=== PATIENT | female | born 1975 | race Caucasian/White ===

== ENCOUNTER 2020-01-17 09:41 | Emergency (ER) | payer MEDICAID, SELFPAY ==
[2020-01-17 09:46] VITALS: BP 132/93; PULSE 93; RESP 18; TEMP 37.2; O2SAT 94
--- NOTE | 2020-01-17 10:01 | W.ED.GENAD ---
Discharge Plan Disposition Patient Disposition: HOME Condition: Improving Discharge Details Chief Complaint: ETOHWithdr Clinical Impression: Alcohol dependence Primary Care Provider: Gracie Kay ED Provider: Serafin Zafar Home Meds and New Rx's Prescriptions: New chlordiazepoxide HCl 25 mg capsule 25 mg PO Q8H PRNQty: 2 RF: 0 Continued valacyclovir 500 mg Tablet 500 mg PO BID PRNRF: 0 acetaminophen 500 mg Tablet 500 mg PO Q6H PRNRF: 0 hydrochlorothiazide 25 mg Tablet 25 mg PO DAILY RF: 0 methadone [Methadone Intensol] 10 mg/mL Concentrate 65 mg PO DAILY RF: 0 ibuprofen 600 mg Tablet 600 mg PO Q8H PRNRF: 0 norethindrone (contraceptive) 0.35 mg Tablet 0.35 mg PO DAILY RF: 0 lisinopril 40 mg Tablet 40 mg PO DAILY RF: 0 Multi-Vitamin HP/Minerals Capsule 1 cap PO DAILY RF: 0 melatonin 5 mg Tablet,Disintegrating 5 mg PO DAILY PRNRF: 0 Discharge Instructions Additional Instructions: Care management, Daysi Bullock, will follow-up with you tomorrow and plan on following up with referral to [place] who have requested that your walsh virus test be completed. NicoDerm patch should be removed after 24 hours. You may not use alcohol while taking Librium. You were given an initial dose today and 2 more doses have been prescribed. Use of methadone is not recommended with this medication due to oversedation. Return to the emergency department for any acute concerns in the interim. Medical Decision Making 44-year-old female alcoholic states she is been admitted previously to [facility], other institutions for detox. She states has been homeless for the past 3 to 4 months and recently relocated from the [facility] to the [facility] in [place]. She is quite anxious, is not a threat to harm herself or others, but is seeking inpatient detoxification. Blood pressure 132/93, pulse 70s during exam. The patient underwent screening medical examination and laboratories performed. Diagnostics noted unremarkable CBC with MCV of 90. Sodium is low at 129 and likely due to beer Potomania. Alcohol level elevated at 283. The patient received a banana bag. She was interviewed by the on-call cross country coach and given references for referral. They also recommended the patient speak with care management and the patient was visited by Daysi Bullock in the ED. a plan was made for referral to [facility], with prescreening of COVID-19 to be performed today. Care management will follow up with the patient tomorrow for probable transfer to [place]. I will treat her with a dose of Librium today, followed by prescription for 2 more pills to maintain her until probable admission to [facility]. She understands she is not to use alcohol with this medication. Patient improved with fluids, banana bag, nicotine patch. She is stable and improved. She is appropriate for plan of outpatient follow-up tomorrow with care management. Lab Data Lab results reviewed: Yes I reviewed the patient's lab results. Labs: Laboratory Results - last 24 hr 01/17/20 01/17/20 01/17/20 10:35 10:35 10:35 WBC 6.85 RBC 4.60 Hgb 14.7 Hct 41.8 MCV 90.9 MCH 32.0 MCHC 35.2 RDW 15.2 H Plt Count 317 MPV 8.5 Immature Gran % 0.1 Neutrophils % 46.5 Lymphocytes % 34.7 Monocytes % 17.2 Eosinophils % 0.9 Basophils % 0.6 Absolute Neutrophils 3.18 Absolute Lymphocytes 2.38 Absolute Monocytes 1.18 H Absolute Eosinophils 0.06 Absolute Basophils 0.04 Sodium 129 L Potassium 4.3 Chloride 94 L Carbon Dioxide 26.3 Anion Gap 8.7 BUN 8 Creatinine 0.71 Estimated GFR/1.73 m2 >= 60.00 Glucose 97 Calcium 8.5 Magnesium 2.1 Total Bilirubin 0.4 AST 29 ALT 36 Alkaline Phosphatase 66 Total Protein 8.4 H Albumin 4.5 Urine Color Urine Clarity Urine pH Ur Specific [place] Urine Protein Urine Ketones Urine Blood Urine Nitrite Urine Bilirubin Urine Urobilinogen Ur Leukocyte Esterase Urine Glucose Salicylates 7.0 Urine Opiates Screen Urine Methadone Screen Acetaminophen < 2 Ur Barbiturates Screen Ur Tricyclics Screen Ur Amphetamines Screen U Benzodiazepines Scrn Urine Cocaine Screen Ur THC Screen Ethyl Alcohol 283.8 01/17/20 01/17/20 10:38 10:38 WBC RBC Hgb Hct MCV MCH MCHC RDW Plt Count MPV Immature Gran % Neutrophils % Lymphocytes % Monocytes % Eosinophils % Basophils % Absolute Neutrophils Absolute Lymphocytes Absolute Monocytes Absolute Eosinophils Absolute Basophils Sodium Potassium Chloride Carbon Dioxide Anion Gap BUN Creatinine Estimated GFR/1.73 m2 Glucose Calcium Magnesium Total Bilirubin AST ALT Alkaline Phosphatase Total Protein Albumin Urine Color Yellow Urine Clarity Clear Urine pH 6.0 Ur Specific [place] 1.010 Urine Protein Negative Urine Ketones Negative Urine Blood Negative Urine Nitrite Negative Urine Bilirubin Negative Urine Urobilinogen 0.2 Ur Leukocyte Esterase Negative Urine Glucose Negative Salicylates Urine Opiates Screen Negative Urine Methadone Screen Positive A Acetaminophen Ur Barbiturates Screen Negative Ur Tricyclics Screen Negative Ur Amphetamines Screen Negative U Benzodiazepines Scrn Negative Urine Cocaine Screen Negative Ur THC Screen Positive A Ethyl Alcohol HPI General Mode of arrival: ambulatory. Date/Time Provider Initiated Documentation: 01/17/20 09:43. Limitations to Documentation: no limitations. Information obtained by: patient. History of Present Illness 44 year old F presents to the emergency department with the chief complaint of Requesting alcohol detox, drinking > 120 ounces of beer/day. Hx of same, described as moderate, Quality is described as dull, Patient started experiencing this month(s) and it has been constant. No relieving factors improve symptom(s), No exacerbating factors reported . Patient notes no other symptoms.. Patient did receive the following treatments prior to arrival, none Related Data Home Medications Medication Instructions Recorded Confirmed Multi-Vitamin HP/Minerals 1 cap PO DAILY 01/17/20 01/17/20 acetaminophen 500 mg PO Q6H PRN 01/17/20 01/17/20 chlordiazepoxide HCl 25 mg PO Q8H PRN #2 cap 01/17/20 hydrochlorothiazide 25 mg PO DAILY 01/17/20 01/17/20 ibuprofen 600 mg PO Q8H PRN 01/17/20 01/17/20 lisinopril 40 mg PO DAILY 01/17/20 01/17/20 melatonin 5 mg PO DAILY PRN 01/17/20 01/17/20 methadone [Methadone Intensol] 65 mg PO DAILY 01/17/20 01/17/20 norethindrone (contraceptive) 0.35 mg PO DAILY 01/17/20 01/17/20 valacyclovir 500 mg PO BID PRN 01/17/20 01/17/20 Previous Rx's Medication Instructions Recorded chlordiazepoxide HCl 25 mg PO Q8H PRN #2 cap 01/17/20 Allergies Allergy/AdvReac Type Severity Reaction Status Date / Time Penicillins Allergy Unverified 01/17/20 11:48 latex AdvReac Unverified 01/17/20 11:48 risperidone AdvReac Unverified 01/17/20 11:48 General Stated Complaint: ETOHWithdr MARIOLA: 3 Review of Systems Narrative: Patient has been taking her methadone, lisinopril, and states she was referred by PMD. No recent illness. No abuse. She gets depressed but has no thoughts of harming herself or others. 8 systems reviewed and otherwise negative. [facility] Social History Smoking/Tobacco Use Status: Current every day Tobacco Type: cigarettes Alcohol Intake: current Alcohol Intake frequency: 3 or more drinks per day Alcohol type: beer Drug use: Daily Substance use type: former substance user and IV drugs Exam Narrative Exam Narrative: GEN: awake, alert, oriented 3. Pleasant, well groomed, interactive. HEAD: Normocephalic, atraumatic ENT: Mucous membranes moist, oropharynx unremarkable, External ear exam unremarkable EYES: PERRL, EOMI NECK: Full ROM, no AJN, no menigismus CHEST/RESP: Nontender, clear to auscultation bilateral, no wheeze/rhonchi/rales CARDIOVASCULAR: RRR, no murmur, rub katina. 2+ Rad pulse bilateral ABDOMEN: Soft, nontender, no mass. +Bowel sounds EXT: Full ROM, no edema, no rash Neuro: Grossly normal neurologic exam, conversant, interactive. Psych: Speech fluent, thoughts congruent, affect anxious Course Vital Signs Vital signs: Vital Signs Temperature 37.2 C 01/17/20 09:46 Pulse 93 H 01/17/20 09:46 Respiratory Rate 18 01/17/20 09:46 Pulse Oximetry 94 L 01/17/20 09:46 Temperature 37.2 C 01/17/20 09:46 Temperature Source Temporal Artery Scan 01/17/20 09:46 Pulse 93 H 01/17/20 09:46 Respiratory Rate 18 01/17/20 09:46 Blood Pressure Position Sitting 01/17/20 09:46 Pulse Oximetry 94 L 01/17/20 09:46 Oxygen Delivery Method Room Air 01/17/20 09:46 Oxygen Flow Rate 0 01/17/20 09:46
[2020-01-17 10:45] LABS: Abs Immature Grans 0.01 k/cumm (0.0-0.09); Absolute Basophil Count 0.04 k/cumm (0.0-0.2); Absolute Eosinophil Count 0.06 k/cumm (0.0-0.7); Absolute Lymphocyte Count 2.38 k/cumm (1.2-3.4); Absolute Monocyte Count 1.18 k/cumm (0.11-0.7); Absolute Neutrophil Count 3.18 k/cumm (1.2-6.7); Basophils % 0.6; Eosinophils % 0.9; HCT 41.8 % (36.0-46.0); HGB 14.7 g/dL (12.0-15.5); Immature Grans % 0.1 %; Lymphocytes % 34.7; Mean Corp. HGB Concentration 35.2 g/dL (32.0-36.0); Mean Corpuscular Volume 90.9 fL (80-95); Mean Platelet Volume 8.5 fL (8.0-11.0); Monocytes % 17.2; Neutrophils % 46.5; Platelet Count 317 x1000/uL (130-400); RBC Distribution Width 15.2 % (11.7-14.6); White Blood Cell Count 6.85 k/cumm (4.4-10.8)
[2020-01-17 10:46] LABS: Bilirubin Negative (Negative); Blood Negative (Negative); Clarity Clear (Clear); Glucose Negative (Negative); Ketones Negative (Negative); Leukocyte Esterase Negative (Negative); Nitrite Negative (Negative); Urobilinogen 0.2 EU/dL (Up TO 0.2)
[2020-01-17] MEDS: LORazepam 2 MG/ML VIAL 0.5 MG IVP (10:48)
[2020-01-17 10:59] LABS: ALT 36 U/L (14-59); AST 29 U/L (15-37); Albumin 4.5 g/dL (3.4-5.0); Alkaline Phosphatase 66 U/L (46-116); Anion Gap 8.7 mmol/L (3-11); BUN 8 mg/dL (7-18); Bilirubin, Total 0.4 mg/dL (0.2-1.0); CO2 26.3 mmol/L (21.0-32.0); CREATININE 0.71 mg/dL (0.55-1.02); Calcium 8.5 mg/dL (8.5-10.1); Chloride 94 mmol/L (98-107); ETHANOL BLOOD 283.8 mg/dL (<3); Glucose 97 mg/dL (74-106); Magnesium 2.1 mg/dL (1.8-2.4); Potassium 4.3 mmol/L (3.5-5.1); Sodium 129 mmol/L (136-145); Total Protein 8.4 g/dL (6.4-8.2)
[2020-01-17 10:59] LABS: *AMPHETAMINES SCREEN URINE Negative (Negative); *BARBITURATES SCREEN URINE Negative (Negative); *BENZODIAZEPINES SCREEN URINE Negative (Negative); Cannabinoids THC POSITIVE (Negative); Cocaine Screen,Urine Negative (Negative); METHADONE URINE SCREEN POSITIVE (Negative); OPIATES URINE SCREEN Negative (Negative); Tricyclic Antidepressants Negative (Negative)
[2020-01-17] MEDS: Normal Saline Flush 10 ML SYR IVP (11:10)
[2020-01-17] MEDS: MAGNESIUM SULFATE 8.12 MEQ, MULTIVITAMIN 10 ML, THIAMINE 100 MG, FOLIC ACID 1 MG in Nor... 168.867 MG IV (11:10)
[2020-01-17 11:18] VITALS: BP 132/93; PULSE 79
[2020-01-17 11:31] VITALS: BP 131/70; PULSE 70
[2020-01-17 11:41] LABS: Acetaminophen < 2 ug/mL (10-30)
[2020-01-17 11:46] VITALS: BP 121/74; PULSE 67
[2020-01-17 12:01] VITALS: BP 128/95; PULSE 78
[2020-01-17] MEDS: Nicotine 21 MG/24 HR PATCH (12:12)
[2020-01-17] MEDS: chlordiazePOXIDE 25 MG CAP PO (14:43)
[2020-01-17 15:17] VITALS: BP 128/95; PULSE 78; RESP 18; TEMP 37.2; O2SAT 94
--- NOTE | 2020-01-18 11:22 | CMPROGNOTE_ITS ---
- If Service Date Differs Date of service: 01/18/20 Time of Service: 11:00 Care Management Progress Note S/O: CARLOS met with Cris at the bedside she states she is living at the [facility] in [place], through [employer] services. She states her move out date in 01/26/2020. She has relocated here from [place] as it was the only place available. Cris reports a long history of substance abuse including alcohol and opiates. She states she has been in several programs in the past including [facility], [facility] and the retreat. She reports she does receive treatment at [facility], she states she has alcohol withdrawal seizures, she does want to attend a rehab. CM contacted and they have beds however she needs a negative COVID before she can be admitted there. Cris does not have a reason to be admitted to the hospital she currently has alcohol in her system. She agrees the the nasal swab today, as soon as the results return in the next 48 hours she will be [facility]. CM faxed a referral to the retreat and will contact them as soon as the results from the test have returned. is willing to provide Cris medications to prevent withdrawal seizures. P: [facility] once she is accepted and the COVID results are in. CM faxed the referral to they do have available beds. CM also referred Cris to [facility] for nurse case management, [employer], [facility] for housing supports, [facility] for ongoing support for housing, and [facility] for substance abuse and counseling. Cris has [place] Medicaid and can use [facility] for transfer to the [facility] once she is accepted. CM will contact her and confirm she can go to the retreat as well as set up transportation through [facility].
[2020-01-18 15:34] LABS: COVID-19 RT-PCR UVMMC Result Negative (Negative)
== END 2020-01-17 15:15 | disposition home or self-care (01) ==
PROVIDERS: Emergency Provider Emergency Medicine; PCP Nurse Practitioner Family
DX: F10.230 Alcohol dependence with withdrawal, uncomplicated (principal); F10.220 Alcohol dependence with intoxication, uncomplicated; Y90.8 Blood alcohol level of 240 mg/100 ml or more; F11.20 Opioid dependence, uncomplicated
CPT/HCPCS: 36415; 80053; 80307; 96361; 96374; 99284; U0003; 80320; 80329; 81003; 83735; 85025; 99283; J2060